=== PATIENT | female | born 1970 | race Caucasian/White ===

== ENCOUNTER 2020-09-29 12:35 | Emergency (ER) | payer OTHER ==
[~2020-09-29] VITALS: Ht 170.2 cm; Wt 81.8 kg
[2020-09-29 13:06] VITALS: BP 138/99
[2020-09-29] MEDS ORDERED: METH4TAB81 PO (13:51)
[2020-09-29] MEDS ORDERED: DICL100G15 TOP (13:51)
== END 2020-09-29 14:01 | disposition home or self-care (01) ==
LOC: ER 12:37
DX: M70.61 Trochanteric bursitis, right hip (principal); M25.561 Pain in right knee; Y93.89 Activity, other specified
CPT/HCPCS: 99283